=== PATIENT | female | born 1980 | race Caucasian/White ===

== ENCOUNTER → 2022-07-12 | Outpatient (CLI) | payer BC, SELFPAY ==
--- NOTE | 2022-07-12 11:28 | RAD_ITS ---
STUDY: XR Abdomen 1 View 07/12/2022 11:34 AM REASON FOR EXAM: Female, 41 years old. ABDOMINAL PAIN STONES TECHNIQUE: XR Abdomen 1 View COMPARISON: None FINDINGS: There are multiple metallic clips in the right upper quadrant. This is consistent for a cholecystectomy. There is a moderate amount of colonic fecal material. There is no demonstrated free abdominal air. The visualized liver, spleen and kidneys are grossly normal in size and morphology. Normal soft tissue structures. Normal visualized osseous structures. RAD/Abdomen Single View IMPRESSION: Constipation. Electronically Signed: Hai Shi MD at 20:17 EDT ,
== END | disposition home or self-care (01) ==
PROVIDERS: PCP Internal Medicine; Visit Provider Urology
DX: N20.0 Calculus of kidney (principal)
CPT/HCPCS: 74018

== ENCOUNTER → 2023-07-18 | Outpatient (CLI) | payer BC, SELFPAY ==
--- NOTE | 2023-07-18 11:05 | RAD_ITS ---
STUDY: X-RAY - ABDOMEN/PELVIS REASON FOR EXAM: Female, 42 years old. Kidney stones. Follow-up. TECHNIQUE: Single AP view of the abdomen / pelvis on 2 images. COMPARISON: Abdomen x-rays dated July 12, 2022. FINDINGS: Normal visualized lung bases. There is an unremarkable bowel gas pattern. There is no demonstrated free abdominal air. The visualized liver, spleen and kidneys are grossly normal in size and morphology. Cholecystectomy clips. Normal visualized osseous structures. RAD/Abdomen Single View IMPRESSION: No abnormal intra-abdominal calcifications identified. Electronically Signed: Castro Page MD at 13:24 EDT ,
== END | disposition home or self-care (01) ==
PROVIDERS: PCP Internal Medicine; Referring Provider Urology; Visit Provider Urology
DX: N20.0 Calculus of kidney (principal)
CPT/HCPCS: 74018